=== PATIENT | male | born 1955 | race Caucasian/White ===

== ENCOUNTER 2016-09-11 07:15 | Observation (INO) | payer BC ==
[2016-09-11] VITALS (16 sets, daily range): BP systolic 110–149; BP diastolic 60–95; PULSE 66–81; TEMP 36.4–36.9; O2SAT 76–100; Ht 185.4 cm; Wt 99.9 kg
[~2016-09-11] VITALS: Ht 185.4 cm; Wt 99.9 kg
[~2016-09-11 07:15] MED LIST: ASPI81TA28 PO; CHOL1000 PO; COEN1CAP28 PO; FLUT27.53; LORA5TAB3 PO; PRT/20 PO; ROSU40TA PO
[2016-09-11] MEDS ORDERED: MIDAZOLAM HCL 1 MG/ML 2ML VIAL ONE (08:03)
[2016-09-11] MEDS ORDERED: NiCARDipine HCL INJ 2.5 MG/ML 10 ML AMP ONE (08:03)
[2016-09-11] MEDS: FENTANYL CITRATE INJ 50 MCG/1 ML 2 ML VIAL ONE (08:03)
[2016-09-11] MEDS ORDERED: HEPARIN SOD (PORCINE) 1000 UNIT/ML 10 ML VIAL ONE ×2 (08:03→09:25)
[2016-09-11] MEDS ORDERED: NITROGLYCERIN/D5W 100MCG/ML 20ML SYR ONE (08:04)
[2016-09-11] MEDS ORDERED: FENTANYL CITRATE INJ 50 MCG/1 ML 2 ML VIAL ONE (09:23)
[2016-09-11] MEDS: MIDAZOLAM HCL 1 MG/ML 2ML VIAL ONE (09:23)
--- NOTE | 2016-09-11 09:34 | Procedure Note ---
Pre-Mod Sedation Assessment General Date of Moderate Sedation: Sep 11, 2016. Vital Signs: Vital Signs Past 12 Hours Date Time Temp Pulse Resp B/P (MAP) Pulse Ox O2 Delivery O2 Flow Rate FiO2 09/11/16 07:27 36.5 75 16 147/61 98 Room Air Review Cardiovascular: regular rate, rhythm, no edema, no gallop Abdomen: normal bowel sounds, non tender, soft Lungs: chest non-tender, lungs clear Pre-Sedation Airway Assessment Oral Cavity: WNL Short Thick Neck: No Hx of Sleep Apnea: No Smoking Status: Never Smoker Mallampati Classification: Class III ASA Classification: Class III Procedure Planning Contraindications-for Mod Sed: None Yes Notes The planned sedation has been discussed with the patient and consent obtained. I have identified the patient, determined the appropriateness of sedation and have assessed the patient immediately prior to the procedure. All medicine(s) and interventions are by my order.
--- NOTE | 2016-09-11 09:35 | History & Physical Bridge Note ---
H&P Re-Evaluation Bridge Note: I have examined the patient, reviewed the History & Physical and in the interval since the performance of the History & Physical I have noted the following changes of clinical significance: No changes noted
--- NOTE | 2016-09-11 09:35 | Procedure Note ---
Post-Mod Sedation Assessment General Date of Moderate Sedation Sep 11, 2016. Vital Signs: Vital Signs Past 12 Hours Date Time Temp Pulse Resp B/P (MAP) Pulse Ox O2 Delivery O2 Flow Rate FiO2 09/11/16 07:27 36.5 75 16 147/61 98 Room Air Review - Discharge Criteria Vital Signs Stable: Yes Alert/Oriented/Conversant: Yes Returned to Baseline Mental St: Yes Nausea Absent/Minimal: Yes Pain/Discomfort/Absent/Minimal: Yes Normal/Baseline Respirations: Yes Active Bleeding?: No Pt Received D/C Instructions: N/A Prescriptions Given: None Specific Proced. D/C Criteria Distal Pulses Present (Cardiac: Yes Groin site assessed-Card Cath: N/A Voided Prior To Discharge: N/A Discharged Patients Adult Escort/Transportation: N/A
--- NOTE | 2016-09-11 10:00 | Cardiac Catheterization ---
Procedure Note Procedure Date Sep 11, 2016. Pre-Procedure Diagnosis Positive Stress Test, CAD AUC Score 8 Post-Procedure Diagnosis Severe CAD Procedure(s) Performed Coronary Angiography, Left Heart Cath [employer] Sergeant Dr. Pineda Rate Supervisor(s) Asa REPORTS DEVELOPER Estimated Blood Loss 5cc Medication(s) Fentanyl, Heparin, Nicardipine, Nitroglycerin, Versed, Lidocaine 1% Summary of Findings 95% mid LAD involving ostium of D2. 100% mid RCA, distal vessel and PDA fills via bridging collaterals and left to right collaterals. Hemodynamics Rest Ao: 128/79/101 Final Ao: 118/76/95 LV: 133/8/8 Recommendations PCI without planned CABG Specimens None Radiation Exposure (mGy) 1565 Contrast (mls) 90 Anesthesia Moderate sedation. Start 827. End 924. Sedation RN : Jamie Garcia Procedural Complication(s) None Disposition Patient remained in slab conditioner supervisor for PCI ACC Data Cardiac Status Clinical evaluation leading to the procedure CAD Presntation: Positive Stress Test Anginal Classification: CCS II Heart Failure: No Stress studies past 6 months: Yes Coronary Anatomy Dominant: Co-dominant Left Main (% Stenosis): Normal LAD (% Stenosis): Ostial (0%), Proximal (30% proximal followed by ectatic area) , Mid (95% involving ostium of D2), Distal (10%) D1 (% Stenosis): Ostial (70%), Proximal (20%), Mid (10%), Distal (10%) Circumflex (% Stenosis): Ostial (0%), Proximal (20%), Mid (10%), Distal (10%) OM1 (% Stenosis): Ostial (10%), Proximal (20%), Mid (20%), Distal (10%) L PL1 (% Stenosis): Ostial (mild luminal irregularities 10%) L PDA (% Stenosis): Ostial (Mild luminal irregularities 10%) RCA (% Stenosis): Ostial (0%), Proximal (20%), Mid (100% with KEVIN 1 flow. + bridging collaterals) R PDA (% Stenosis): Ostial (moderate caliber vessel with luminal irregularities (10%), limited visualization) Diagnostic Status: Elective Closure Device Percutaneous Entry Location: Radial Intraprocedure Events Significant Dissection: No Perforation: No
[2016-09-11] MEDS ORDERED: CLOPIDOGREL BISULFATE 300 MG TAB PO ONE (10:53)
[2016-09-11] MEDS ORDERED: ONDANSETRON INJ 2 MG/ML 2 ML VIAL IV PRN (11:00)
--- NOTE | 2016-09-11 11:09 | Procedure Note ---
Post-Mod Sedation Assessment General Date of Moderate Sedation Sep 11, 2016. Vital Signs: Vital Signs Past 12 Hours Date Time Temp Pulse Resp B/P (MAP) Pulse Ox O2 Delivery O2 Flow Rate FiO2 09/11/16 11:03 79 16 122/76 (91) 95 Room Air 09/11/16 10:55 77 16 117/76 (90) 95 Room Air 09/11/16 07:27 36.5 75 16 147/61 98 Room Air Review - Discharge Criteria Vital Signs Stable: Yes Alert/Oriented/Conversant: Yes Returned to Baseline Mental St: Yes Nausea Absent/Minimal: Yes Pain/Discomfort/Absent/Minimal: Yes Normal/Baseline Respirations: Yes Active Bleeding?: No Pt Received D/C Instructions: N/A Prescriptions Given: None Specific Proced. D/C Criteria Distal Pulses Present (Cardiac: Yes Groin site assessed-Card Cath: N/A Voided Prior To Discharge: N/A Discharged Patients Adult Escort/Transportation: N/A
--- NOTE | 2016-09-11 11:26 | Cardiac Catheterization ---
Procedure Note Procedure Date Sep 11, 2016. Pre-Procedure Diagnosis Positive Stress Test AUC Score 7 Post-Procedure Diagnosis Severe CAD, Successful PCI Procedure(s) Performed Drug Eluting Stent Primer Inserting Machine Operator Pato Furnace Combination Analyst(s) Asa Estimated Blood Loss 15 Medication(s) Fentanyl, Heparin, Nicardipine, Nitroglycerin, Versed Summary of Findings Indication: Positive Stress Access: 6Fr Slender Right Radial Artery Catheters: AR1, AL 1.0; ALR 1-2 Findings: For full details of patient's coronary angiography please see Cath Report dictated by Dr. Pineda. Briefly patient found to have 95% mid LAD stenosis involving bifurcation of large diagonal as well as subtotal chronic occlusion of early-mid RCA with left to right collaterals. -- PCI -- Antithrombotic therapy: Heparin, Clopidogrel Procedure: RCA eventually cannulated with ALR 1-2 guide after attempts with AR1/AL1 With the aid of 2.0 OTW balloon and guideliner whisper wire eventually passed across lesion into distal vessel Mid RCA lesion predilated with 2.0 and 2.5 compliant balloons Dilated lesion stented with 2.75 x 18 Resolute ANUJ Stent post-dilated with 3.0 noncompliant balloon IC vasodilators administered for spasm Moderate to severe residual stenosis remained distal to placed stent. 2nd ANUJ placed overlapping distal aspect of 1st stent - 2.75 x 12 Resolute ANUJ. Post dilated with stent balloon to high atmospheres Post procedure KEVIN 3 flow, stents well expanded with minimal residual stenosis and no apparent cardiac complications. Arterial Closure: TR Band Summary: 1. Severe 2 vessel coronary artery disease - 95% mid LAD at bifurcation with large diagonal - 99%/subtotal chronic occlusion early-mid RCA 2. Successful PCI of Mid RCA with 2 drug-eluting stents (2.75 x 18, 2.75 x 12 Resolute, post-dilated to 3.0) Recommendations: To PCU for continued monitoring Loaded with Clopidogrel 600 mg in construction or leak gang laborer Continue dual-antiplatelet therapy with ASA/Clopidogrel for 1 year Continue statin, ASCVD risk factor modification per Dr. Pineda Consult cardiac Rehab Tentatively plan for staged PCI of LAD on Wednesday 09/13. Hemodynamics Rest Ao: 118/79/97 Final Ao: 113/78/93 LV: -- Recommendations PCI without planned CABG Specimens None Radiation Exposure (mGy) 4202 Contrast (mls) 200 total Fluids (cc crystalloids) 280 Drains None Anesthesia Moderate Procedural Complication(s) None Disposition PCU ACC Data Cardiac Status Clinical evaluation leading to the procedure CAD Presntation: Positive Stress Test Diagnostic Physician's Name: Elmo Pineda DO Closure Device Percutaneous Entry Location: Radial Closure Device: Radial Band Recommendations: PCI without planned CABG PCI Indication: Unstable Angina, + Stress Test Lesion Segment Name: mid RCA Culprit Artery: No Stenosis Prior to Rx (%): 99 Chronic Total Occlusion: No IVUS: No FFR: No Pre-Procedure KEVIN Flow: 2 Previously Treated Lesion: No Lesion Complexity: High/C Lesion Length (mm): 20 Thrombus Present: No Bifurcation Lesion: No Guidewire Across Lesion: Yes Guidewire: Stenosis Post-Procedure (%): 0 Post-Procedure KEVIN Flow: 3 Device(s) Deployed: Yes Intraprocedure Events Significant Dissection: No Perforation: No
[2016-09-11] MEDS ORDERED: SODIUM CHLORIDE 0.9% 1000ML 1,000 ML IV SCH (12:15)
[2016-09-11] MEDS ORDERED: IV FLUIDS COMPLETED PRN (12:15)
--- NOTE | 2016-09-11 14:16 | History and Physical ---
History & Physical Date & Time of Service: Sep 11, 2016 at 14:01 Chief Complaint: CAD Primary Care Physician: Sherly Pineda D.O. History of Present Illness Source: patient 60M with hx of hyperlipidemia, bicuspid aortic valve is s/p elective cardiac cath for positive stress test. patient is s/p two stents to RCA and plan for staged stent to mid LAD stenosis on Friday. Patient says few weeks ago while hiking he was getting burning sensation in his chest which would subside after taking rest. But since last 3 weeks his symptoms subsided. He had a stress test for above symptoms and it was positive and subsequently patient was scheduled for cardiac cath today. Currently resting comfortably. denies any chest pain. no sob. no cough. Afebrile. No nausea or abdominal pain. Family History father had hyperlipidemia, enlarged prostate and valve surgery maternal grand father had prostrate cancer in his 90's. Social History Smoking Status: Never Smoker Alcohol Use: 1-2 drinks daily Drug Use: none Marital Status: Housing status: lives with family Occupational Status: employed Immunizations History of Influenza Vaccine: Unknown History of Tetanus Vaccine?: Unknown History of Pneumococcal: No Multi-Drug Resistant Organisms History of MDRO: No Allergies Coded Allergies: No Known Allergies (Unverified , 02/22/04) Home Medications Scheduled Aspirin (Aspirin Ec), 81 MG PO DAILY Cholecalciferol (Vitamin D3), 1 TAB PO DAILY Coenzyme Q10 (Ubidecarenone) (Co Q10), 100 MG PO DAILY Fluticasone Furoate (Flonase Sensimist), 1 SPRAY NA DAILY Loratadine & Pseudoephedrine (Claritin-D 12 Hour), 1 TAB PO BID Pantoprazole (Protonix), 20 MG PO DAILY Rosuvastatin Calcium (Crestor), 1 TAB PO DAILY Review of Systems Constitutional: No fever, No chills, No sweats Respiratory: No cough, No sputum, No shortness of breath, No dyspnea on exertion Cardiovascular: + chest pain (had chest pain on exertion few weeeks ago but none currently), No edema Abdomen: No pain, No nausea, No diarrhea Musculoskeletal: No swelling Genitourinary - Male: No dysuria Neurologic: No memory loss Integumentary: No rash Physical Exam Vital Signs Date Time Temp Pulse Resp B/P (MAP) Pulse Ox O2 Delivery O2 Flow Rate FiO2 09/11/16 13:57 36.6 81 15 110/74 (86) 98 Room Air 09/11/16 13:00 36.6 73 18 120/75 (90) 96 Room Air 09/11/16 12:15 36.6 77 18 145/60 (88) 96 Room Air 09/11/16 12:09 99 Room Air 09/11/16 11:58 36.6 76 18 143/88 (106) 76 Room Air 09/11/16 11:57 36.6 75 18 147/61 09/11/16 11:45 36.6 69 18 132/95 (107) 99 Room Air 09/11/16 11:30 36.6 71 18 119/74 (89) 99 Room Air 09/11/16 11:30 36.4 74 18 135/84 (101) 99 Room Air 09/11/16 11:30 99 Room Air 09/11/16 11:30 36.4 74 18 135/84 (101) 99 Room Air 09/11/16 11:03 79 16 122/76 (91) 95 Room Air 09/11/16 10:55 77 16 117/76 (90) 95 Room Air 09/11/16 07:27 36.5 75 16 147/61 98 Room Air General Appearance: WD/WN, no apparent distress Head: normocephalic, atraumatic Eyes: normal inspection, PERRL ENT: normal ENT inspection, hearing grossly normal, pharynx normal Neck: supple, no adenopathy, thyroid normal, no JVD Respiratory/Chest: chest non-tender, lungs clear, normal breath sounds, no respiratory distress, no accessory muscle use Cardiovascular: regular rate, rhythm, no edema, no gallop, no JVD, no murmur Abdomen/GI: normal bowel sounds, non tender, soft, no organomegaly, no pulsatile mass Extremities/Musculoskelatal: normal inspection, no pedal edema Neurologic/Psych: hairspring vibrator II-XII nml as tested, alert, normal mood/affect, oriented x 3 Skin: normal color, warm/dry, no rash Diagnostics Laboratory Results Results Past 24 Hours Test 09/11/16 09:31 09/11/16 09:52 09/11/16 10:15 09/11/16 10:45 Range/Units Kaolin Activated Coagulation Time 169 224 241 230 94-140 SECONDS Diagnostic Radiology s/p cardiac cath and two stents to RCA Impression Assessment and Plan 60m is s/p elective cardiac cath for positive stress test. CAD elective cardiac cath today showed two vessel disease 95% stenosis of mid LAD at bifurcation with large diagonal 99%/subtotal chronic occlusion early-mid RCA s/p two drug eluting stents to RCA plan for staged PCI of LAD on Wednesday 09/13. stated on aspirin and Plavix and rto continue home statin post cardiac cath management as per cardiology. Hyperlipidemia on statin will f/u lipid profile Dvt px scds. Disposition Monitor in tele to be determined We are consults. Cardiology is primary . Thank you for the consult Advanced Directives Existing Living Will: No Existing Power of Auto Clocks Repairer: No VTE Prophylaxis VTE Risk Assessment Done? Y/N: Yes Risk Level: Low Given or contraindicated: SCD's
[2016-09-11] MEDS: ROSUVASTATIN CALCIUM 20 MG TAB PO SCH (20:26)
[2016-09-11] MEDS ORDERED: LORATADINE PO SCH (21:00)
[2016-09-11] MEDS ORDERED: PSEUDOEPHEDRINE PO SCH (21:00)
[2016-09-12] VITALS (11 sets, daily range): BP systolic 126–151; BP diastolic 78–92; PULSE 64–82; TEMP 36.5–37; O2SAT 93–99
[2016-09-12 05:54] LABS: BASO % 0.1 %; BASO ABS # 0.01 K/uL (0-0.2); COMPLETE YES; EOS % 2.9 %; HEMATOCRIT 42.6 % (42-52); IG% 0.3 %; LYMPH % 20.8 %; LYMPH ABS # 1.43 K/uL (1.2-3.4); MEAN CELL VOLUME 90.6 fL (80-100); MEAN CORPUSCULAR HEMOGLOBIN 31.7 pg (25-34); MEAN PLATELET VOLUME 9.8 fL (7.4-10.4); MONO % 14.4 %; NEUT % 61.5 %; PLATELET COUNT 177 K/uL (130-400); WHITE BLOOD COUNT 6.89 K/uL (4.8-10.8)
[2016-09-12 06:33] LABS: BUN/CREATININE RATIO 14.5 (10-20); POTASSIUM 4.3 mmol/L (3.5-5.1)
[2016-09-12 06:36] LABS: CHOLESTEROL/HDL RATIO 4.4
[2016-09-12] MEDS: FLUTICASONE PROPIONATE NA SPR 16 GM BTL SCH (08:18)
[2016-09-12] MEDS: ASPIRIN 81 MG ECTAB PO SCH (08:18)
[2016-09-12] MEDS: CHOLECALCIFEROL 1000 INTER.UNIT TAB PO SCH (08:19)
[2016-09-12] MEDS: PANTOprazole SOD 40 MG TAB PO SCH (08:19)
[2016-09-12] MEDS: CLOPIDOGREL BISULFATE 75 MG TAB PO SCH (08:19)
[2016-09-12] MEDS ORDERED: NON-FORMULARY MEDICATION (Coenzyme Q10 (Ubidecarenone) (Co Q10) 100 MG) PO SCH (09:00)
--- NOTE | 2016-09-12 11:37 | Cardiology Follow-Up ---
Subjective General Date of Service: Sep 12, 2016. Pt evaluation today including: conversation w/ patient, physical exam, chart review, lab review, review of studies, conversation w/ retail client solutions consultant, review of inpatient medication list History of Present Illness The patient is a 60 year old male seen in follow-up. Feels well from a cardiovascular perspective. Mild wrist soreness. No hematoma. Denies chest discomfort or shortness of breath. Telemetry demonstrates sinus rhythm with a 13 beat de of atrial tachycardia at approximately 1 AM. Patient offers no complaints today. Allergies Coded Allergies: No Known Allergies (Unverified , 02/22/04) Social History Smoking Status: Never Smoker Hx Tobacco Use In Past Year?: No Hx Alcohol Use - Type And Amou: Yes (6 pack of beer a day) Hx Substance Use - Type And Am: No Review of Systems Respiratory: No cough, No sputum, No wheezing, No shortness of breath, No dyspnea on exertion, No dyspnea at rest, No hemoptysis Cardiac: No chest pain, No orthopnea, No PND, No edema, No claudication, No palpitations Physical Exam Vital Signs Last Vital Signs Documentation Date Time Temp Pulse Resp B/P (MAP) Pulse Ox O2 Delivery O2 Flow Rate FiO2 09/12/16 08:01 36.7 74 20 146/92 (110) 93 Room Air Physical Exam Constitutional: General Apperance: heathly-appearing, well-nourished, well-developed Level of Distress: NAD Head: normocephalic, atraumatic ENMT: normal ENT inspection, hearing grossly normal Neck: supple, trachea midline Lungs: Auscultation: breath sounds normal, no wheezing, no rales/crackles, no rhonchi Cardiovascular: Heart Auscultation: RRR, normal S1, normal S2, I/ JUAN Peripheral Pulses: Radial Pulse: normal on the left, normal on the right Femoral Pulse: normal on the left, normal on the right Abdomen: Bowel Sounds: normal Inspection & Palpation: soft, non-distended, no tenderness, guarding & rebound Musculoskeletal: normal, normal strength (5/5 throughout) Extremities: no cyanosis, no edema, no clubbing, no ulcers Neurologic: Gait & Station: pertinent finding (No focal deficit) Cranial Nerves: grossly intact Assessment and Plan Assessment and Plan Final impression: 1. 60-year-old male electively admitted for cardiac catheterization demonstrating severe two-vessel coronary disease with a 100% occlusion of his right coronary artery and a 95% mid LAD stenosis involving the ostium of a second diagonal branch vessel. Patient received 2 overlapping drug-eluting stents to the right coronary artery 09/11/16. Patient tolerated procedure well without complication. 2. Bicuspid aortic valve with mild aortic stenosis 3. Dyslipidemia 4. Elevated blood pressure Plan/recommendations: Patient will return to the catheterization lab tomorrow for percutaneous intervention of the left anterior descending artery. He will continue aspirin, Plavix, and high-dose statin. I'm adding Toprol-XL 25 mg daily today. He will receive his first dose this morning. Continue telemetry monitoring during hospitalizations. Nothing by mouth except medications after midnight. Plan for discharge on Friday post PCI. Laboratory Results Last 24 Hours Test 09/12/16 05:14 White Blood Count 6.89 K/uL Red Blood Count 4.70 M/uL Hemoglobin 14.9 g/dL Hematocrit 42.6 % Mean Corpuscular Volume 90.6 fL Mean Corpuscular Hemoglobin 31.7 pg Mean Corpuscular Hemoglobin Concent 35.0 g/dl Platelet Count 177 K/uL Mean Platelet Volume 9.8 fL Neutrophils (%) (Auto) 61.5 % Lymphocytes (%) (Auto) 20.8 % Monocytes (%) (Auto) 14.4 % Eosinophils (%) (Auto) 2.9 % Basophils (%) (Auto) 0.1 % Neutrophils # (Auto) 4.24 K/uL Lymphocytes # (Auto) 1.43 K/uL Monocytes # (Auto) 0.99 K/uL Eosinophils # (Auto) 0.20 K/uL Basophils # (Auto) 0.01 K/uL RDW Standard Deviation 42.2 fL RDW Coefficient of Variation 12.6 % Immature Granulocyte % (Auto) 0.3 % Immature Granulocyte # (Auto) 0.02 K/uL Sodium Level 140 mmol/L Potassium Level 4.3 mmol/L Chloride Level 107 mmol/L Carbon Dioxide Level 28 mmol/L Anion Gap 5.0 mmol/L Blood Urea Nitrogen 15 mg/dl Creatinine 1.00 mg/dl Est Creatinine Clear Calc Drug Dose 98.5 ml/min Estimated GFR () 94.4 Estimated GFR (Non- 81.4 BUN/Creatinine Ratio 14.5 Random Glucose 95 mg/dl Calcium Level 8.0 mg/dl Triglycerides Level 411 mg/dl Cholesterol Level 162 mg/dl HDL Cholesterol 37 mg/dl LDL Cholesterol, Calculated mg/dl VLDL Cholesterol, Calculated mg/dl Cholesterol/HDL Ratio 4.4
[2016-09-12] MEDS ORDERED: METOPROLOL SUCC 25MG EXT REL TAB PO ONE (12:45)
--- NOTE | 2016-09-12 12:53 | Progress Note ---
Medicine Progress Note Date & Time of Visit: Sep 12, 2016 at 12:35. Subjective Pt was seen and examined Lying in bed comfortable watching moving in his laptop Pt said that he feels fine he denies any chest pain, palpitation, dizziness and sob Objective Last 8 Hrs Date Time Temp Pulse Resp B/P (MAP) Pulse Ox O2 Delivery O2 Flow Rate FiO2 09/12/16 12:00 99 Room Air 09/12/16 08:01 36.7 74 20 146/92 (110) 93 Room Air 09/12/16 08:00 99 Room Air Physical Exam: General- No acute distress Head- atraumatic Eyes- PERRL, EOMI ENT- oropharynx clear Neck- supple, no JVD Lungs- clear to auscultation Heart- regular rhythm; no murmur Abdomen- normal bowel sounds, soft Extremities- no calf tenderness, No edema Neuro- alert, oriented x 3; PERRL, EOMI Skin- warm & dry Laboratory Results: Last 24 Hours Test 09/12/16 05:14 White Blood Count 6.89 K/uL Red Blood Count 4.70 M/uL Hemoglobin 14.9 g/dL Hematocrit 42.6 % Mean Corpuscular Volume 90.6 fL Mean Corpuscular Hemoglobin 31.7 pg Mean Corpuscular Hemoglobin Concent 35.0 g/dl Platelet Count 177 K/uL Mean Platelet Volume 9.8 fL Neutrophils (%) (Auto) 61.5 % Lymphocytes (%) (Auto) 20.8 % Monocytes (%) (Auto) 14.4 % Eosinophils (%) (Auto) 2.9 % Basophils (%) (Auto) 0.1 % Neutrophils # (Auto) 4.24 K/uL Lymphocytes # (Auto) 1.43 K/uL Monocytes # (Auto) 0.99 K/uL Eosinophils # (Auto) 0.20 K/uL Basophils # (Auto) 0.01 K/uL RDW Standard Deviation 42.2 fL RDW Coefficient of Variation 12.6 % Immature Granulocyte % (Auto) 0.3 % Immature Granulocyte # (Auto) 0.02 K/uL Sodium Level 140 mmol/L Potassium Level 4.3 mmol/L Chloride Level 107 mmol/L Carbon Dioxide Level 28 mmol/L Anion Gap 5.0 mmol/L Blood Urea Nitrogen 15 mg/dl Creatinine 1.00 mg/dl Est Creatinine Clear Calc Drug Dose 98.5 ml/min Estimated GFR () 94.4 Estimated GFR (Non- 81.4 BUN/Creatinine Ratio 14.5 Random Glucose 95 mg/dl Calcium Level 8.0 mg/dl Triglycerides Level 411 mg/dl Cholesterol Level 162 mg/dl HDL Cholesterol 37 mg/dl LDL Cholesterol, Calculated mg/dl VLDL Cholesterol, Calculated mg/dl Cholesterol/HDL Ratio 4.4 Assessment & Plan CAD S/p elective cardiac cath yesterday 95% stenosis of mid LAD at bifurcation with large diagonal 100% subtotal chronic occlusion early-mid RCA s/p two drug eluting stents to RCA Planning to go to cardiac cath tomorrow for percutaneous intervention of the left anterior descending artery Continue plavix/aspirin/ statin and metoprolol adding Asymptomatic Hyperlipidemia Continue statin DVT px scds. Current Inpatient Medications: Current Inpatient Medications Medications (Trade) Dose Ordered Sig/Leonel Route Start Time Stop Time Status Last Admin Dose Admin Ondansetron HCl (Zofran Inj) 4 mg Q6H PRN IV 09/11/16 11:00 10/11/16 10:59 Aspirin (Ecotrin Tab) 81 mg QAM PO 09/12/16 09:00 10/12/16 08:59 09/12/16 08:18 81 MG Clopidogrel Bisulfate (plAVix TAB) 75 mg QAM PO 09/12/16 09:00 10/12/16 08:59 09/12/16 08:19 75 MG Cholecalciferol (Vitamin D Tab) 1 inter.unit DAILY PO 09/12/16 09:00 10/12/16 08:59 09/12/16 08:19 1 INTER.UNIT Rosuvastatin Calcium (Crestor Tab) 40 mg DAILY PO 09/12/16 09:00 10/12/16 08:59 09/11/16 20:26 40 MG Fluticasone Propionate (Flonase Nasal [place]) 1 sprays DAILY NA 09/12/16 09:00 10/12/16 08:59 09/12/16 08:18 1 SPRAYS Pantoprazole Sodium (Protonix Tab) 40 mg QAM PO 09/12/16 09:00 10/12/16 08:59 Miscellaneous (Iv Fluids Completed) 1 ea PRN PRN N/A 09/11/16 12:15 09/11/17 12:14 Miscellaneous Information (Order Awaiting Action) 1 ea QS N/A 09/11/16 16:00 10/11/16 15:59 Metoprolol Succinate (Toprol Xl Tab) 25 mg QAM PO 09/13/16 09:00 10/13/16 08:59 Metoprolol Succinate (Toprol Xl Tab) 25 mg TODAY@1245 ONCE PO 09/12/16 12:45 09/12/16 12:46 09/12/16 12:26 25 MG
[2016-09-13] VITALS (20 sets, daily range): BP systolic 99–154; BP diastolic 56–92; PULSE 64–74; TEMP 36.5–37; O2SAT 95–99
[2016-09-13 06:29] LABS: BASO % 0.2 %; BASO ABS # 0.01 K/uL (0-0.2); COMPLETE YES; EOS % 2.6 %; HEMATOCRIT 45.2 % (42-52); IG% 0.3 %; LYMPH ABS # 1.32 K/uL (1.2-3.4); MEAN CELL VOLUME 89.5 fL (80-100); MEAN CORPUSCULAR HEMOGLOBIN 29.9 pg (25-34); MEAN CORPUSCULAR HGB CONC 33.4 g/dl (32-36); MEAN PLATELET VOLUME 9.4 fL (7.4-10.4); MONO % 14.1 %; NEUT % 59.8 %; PLATELET COUNT 198 K/uL (130-400); RED BLOOD COUNT 5.05 M/uL (4.7-6.1); WHITE BLOOD COUNT 5.74 K/uL (4.8-10.8)
[2016-09-13 06:56] LABS: BLOOD UREA NITROGEN 14 mg/dl (7-18); CALCIUM 8.4 mg/dl (8.5-10.1); CARBON DIOXIDE 29 mmol/L (21-32); CHLORIDE 108 mmol/L (98-107); GLUCOSE 95 mg/dl (70-99); SODIUM 140 mmol/L (136-145)
[2016-09-13] MEDS: FLUTICASONE PROPIONATE NA SPR 16 GM BTL SCH (07:55)
[2016-09-13] MEDS: ASPIRIN 81 MG ECTAB PO SCH (07:55)
[2016-09-13] MEDS: CHOLECALCIFEROL 1000 INTER.UNIT TAB PO SCH (07:56)
[2016-09-13] MEDS: METOPROLOL SUCC 25MG EXT REL TAB PO SCH (07:56)
[2016-09-13] MEDS: PANTOprazole SOD 40 MG TAB PO SCH (07:56)
[2016-09-13] MEDS: CLOPIDOGREL BISULFATE 75 MG TAB PO SCH (07:56)
[2016-09-13] MEDS: ROSUVASTATIN CALCIUM 20 MG TAB PO SCH (07:57)
[2016-09-13] MEDS ORDERED: NiCARDipine HCL INJ 2.5 MG/ML 10 ML AMP ONE (09:40)
[2016-09-13] MEDS ORDERED: HEPARIN SOD (PORCINE) 1000 UNIT/ML 10 ML VIAL ONE (09:40)
[2016-09-13] MEDS ORDERED: MIDAZOLAM HCL 1 MG/ML 2ML VIAL ONE ×2 (09:41→14:13)
[2016-09-13] MEDS ORDERED: FENTANYL CITRATE INJ 50 MCG/1 ML 2 ML VIAL ONE ×2 (09:41→14:13)
[2016-09-13] MEDS ORDERED: NITROGLYCERIN/D5W 100MCG/ML 20ML SYR ONE (09:42)
[2016-09-13] MEDS ORDERED: LISINOPRIL 10 MG TAB PO SCH (09:45)
--- NOTE | 2016-09-13 09:51 | Cardiology Follow-Up ---
Subjective General Date of Service: Sep 13, 2016. Pt evaluation today including: conversation w/ patient, physical exam, chart review, lab review, review of studies, review of inpatient medication list History of Present Illness The patient is a 60 year old male seen in follow-up. Feeling well from a cardiovascular standpoint. Offers no complaints. Blood pressure remains mildly elevated. Short de of asymptomatic paroxysmal atrial tachycardia recorded on telemetry. Allergies Coded Allergies: No Known Allergies (Unverified , 02/22/04) Social History Smoking Status: Never Smoker Hx Tobacco Use In Past Year?: No Hx Alcohol Use - Type And Amou: Yes (6 pack of beer a day) Hx Substance Use - Type And Am: No Review of Systems Respiratory: No cough, No sputum, No wheezing, No shortness of breath, No dyspnea on exertion, No dyspnea at rest, No hemoptysis Cardiac: No chest pain, No orthopnea, No PND, No edema, No claudication Physical Exam Vital Signs Last Vital Signs Documentation Date Time Temp Pulse Resp B/P (MAP) Pulse Ox O2 Delivery O2 Flow Rate FiO2 09/13/16 08:00 99 Room Air 09/13/16 07:23 36.9 71 19 152/92 (112) Physical Exam Constitutional: General Apperance: heathly-appearing, well-nourished, well-developed Level of Distress: NAD Head: normocephalic, atraumatic ENMT: normal ENT inspection, hearing grossly normal Neck: supple, trachea midline Lungs: Auscultation: breath sounds normal, no wheezing, no rales/crackles, no rhonchi Cardiovascular: Heart Auscultation: RRR, normal S1, normal S2, I/ JUAN Peripheral Pulses: Radial Pulse: normal on the left, normal on the right Femoral Pulse: normal on the left, normal on the right Abdomen: Bowel Sounds: normal Inspection & Palpation: soft, non-distended, no tenderness, guarding & rebound Musculoskeletal: normal, normal strength (5/5 throughout) Extremities: no cyanosis, no edema, no clubbing, no ulcers Neurologic: Gait & Station: pertinent finding (No focal deficit) Cranial Nerves: grossly intact Assessment and Plan Assessment and Plan Final impression: 1. 60-year-old male electively admitted for cardiac catheterization demonstrating severe two-vessel coronary disease with a 100% occlusion of his right coronary artery and a 95% mid LAD stenosis involving the ostium of a second diagonal branch vessel. Residual 70% ostial D1. Patient received 2 overlapping drug-eluting stents to the right coronary artery 09/11/16. Patient tolerated procedure well without complication. 2. Bicuspid aortic valve with mild aortic stenosis 3. Echocardiographic evidence of prior myocardial infarction with preserved LV systolic function 4. Dyslipidemia 5. Elevated blood pressure 6. Asymptomatic PAT on telemetry Plan/recommendations: Patient will have PCI of the mid LAD today. Add lisinopril 5 mg daily to improve blood pressure control. Continue aspirin, Plavix, Toprol-XL, and high- dose statin. Continue telemetry monitoring during hospitalization. Possible discharge in a.m. Laboratory Results Last 24 Hours Test 09/13/16 06:05 09/13/16 06:58 White Blood Count 5.74 K/uL Red Blood Count 5.05 M/uL Hemoglobin 15.1 g/dL Hematocrit 45.2 % Mean Corpuscular Volume 89.5 fL Mean Corpuscular Hemoglobin 29.9 pg Mean Corpuscular Hemoglobin Concent 33.4 g/dl Platelet Count 198 K/uL Mean Platelet Volume 9.4 fL Neutrophils (%) (Auto) 59.8 % Lymphocytes (%) (Auto) 23.0 % Monocytes (%) (Auto) 14.1 % Eosinophils (%) (Auto) 2.6 % Basophils (%) (Auto) 0.2 % Neutrophils # (Auto) 3.43 K/uL Lymphocytes # (Auto) 1.32 K/uL Monocytes # (Auto) 0.81 K/uL Eosinophils # (Auto) 0.15 K/uL Basophils # (Auto) 0.01 K/uL RDW Standard Deviation 40.4 fL RDW Coefficient of Variation 12.6 % Immature Granulocyte % (Auto) 0.3 % Immature Granulocyte # (Auto) 0.02 K/uL Sodium Level 140 mmol/L Potassium Level mmol/L 4.1 mmol/L Chloride Level 108 mmol/L Carbon Dioxide Level 29 mmol/L Anion Gap 3.0 mmol/L Blood Urea Nitrogen 14 mg/dl Creatinine 1.00 mg/dl Est Creatinine Clear Calc Drug Dose 98.3 ml/min Estimated GFR () 94.4 Estimated GFR (Non- 81.4 BUN/Creatinine Ratio 14.0 Random Glucose 95 mg/dl Calcium Level 8.4 mg/dl
[2016-09-13] MEDS ORDERED: LISINOPRIL 5 MG TAB PO ONE (11:12)
[2016-09-13] MEDS ORDERED: CLOPIDOGREL BISULFATE 300 MG TAB PO ONE (14:46)
[2016-09-13] MEDS ORDERED: ONDANSETRON INJ 2 MG/ML 2 ML VIAL IV PRN (15:45)
[2016-09-13] MEDS ORDERED: SODIUM CHLORIDE 0.9% 1000ML 1,000 ML IV SCH (15:45)
--- NOTE | 2016-09-13 15:58 | Progress Note ---
Medicine Progress Note Date & Time of Visit: Sep 13, 2016 at 15:56. Subjective Pt was seen and examined Lying in bed with no distress Denies any chest pain, palpitation, dizziness and SOB Objective Last 8 Hrs Date Time Temp Pulse Resp B/P (MAP) Pulse Ox O2 Delivery O2 Flow Rate FiO2 09/13/16 15:52 73 20 143/71 (95) 98 Room Air 09/13/16 15:37 71 20 141/74 (96) 97 Room Air 09/13/16 15:30 71 20 141/74 (96) 97 Room Air 09/13/16 15:15 36.5 71 18 151/78 (102) 97 Room Air 09/13/16 15:00 74 20 148/73 (98) 96 Room Air 09/13/16 14:45 64 18 154/92 (112) 95 Room Air 09/13/16 14:35 64 18 145/89 (107) 95 Room Air 09/13/16 11:15 65 16 119/84 (96) 97 Room Air 09/13/16 11:00 61 16 130/75 (93) 95 Room Air 09/13/16 10:45 63 16 120/73 (89) 95 Room Air 09/13/16 10:30 62 16 123/81 (95) 94 Room Air 09/13/16 10:15 64 16 128/80 (96) 94 Room Air 09/13/16 10:05 64 16 126/69 (88) 95 Room Air 09/13/16 08:00 99 Room Air Physical Exam: General- No acute distress Head- atraumatic Eyes- PERRL, EOMI ENT- oropharynx clear Neck- supple, no JVD Lungs- clear to auscultation Heart- regular rhythm; no murmur Abdomen- normal bowel sounds, soft Extremities- no calf tenderness, No edema Neuro- alert, oriented x 3; PERRL, EOMI Skin- warm & dry Laboratory Results: Last 24 Hours Test 09/13/16 06:05 09/13/16 06:58 White Blood Count 5.74 K/uL Red Blood Count 5.05 M/uL Hemoglobin 15.1 g/dL Hematocrit 45.2 % Mean Corpuscular Volume 89.5 fL Mean Corpuscular Hemoglobin 29.9 pg Mean Corpuscular Hemoglobin Concent 33.4 g/dl Platelet Count 198 K/uL Mean Platelet Volume 9.4 fL Neutrophils (%) (Auto) 59.8 % Lymphocytes (%) (Auto) 23.0 % Monocytes (%) (Auto) 14.1 % Eosinophils (%) (Auto) 2.6 % Basophils (%) (Auto) 0.2 % Neutrophils # (Auto) 3.43 K/uL Lymphocytes # (Auto) 1.32 K/uL Monocytes # (Auto) 0.81 K/uL Eosinophils # (Auto) 0.15 K/uL Basophils # (Auto) 0.01 K/uL RDW Standard Deviation 40.4 fL RDW Coefficient of Variation 12.6 % Immature Granulocyte % (Auto) 0.3 % Immature Granulocyte # (Auto) 0.02 K/uL Sodium Level 140 mmol/L Potassium Level mmol/L 4.1 mmol/L Chloride Level 108 mmol/L Carbon Dioxide Level 29 mmol/L Anion Gap 3.0 mmol/L Blood Urea Nitrogen 14 mg/dl Creatinine 1.00 mg/dl Est Creatinine Clear Calc Drug Dose 98.3 ml/min Estimated GFR () 94.4 Estimated GFR (Non- 81.4 BUN/Creatinine Ratio 14.0 Random Glucose 95 mg/dl Calcium Level 8.4 mg/dl Assessment & Plan CAD S/p elective cardiac cath yesterday 95% stenosis of mid LAD at bifurcation with large diagonal 100% subtotal chronic occlusion early-mid RCA s/p two drug eluting stents to RCA Will go to cardiac cath today for percutaneous intervention of the left anterior descending artery staging Continue plavix/aspirin/ statin and metoprolol adding Continue monitor in tele Asymptomatic Hyperlipidemia Continue statin DVT px scds. Current Inpatient Medications: Current Inpatient Medications Medications (Trade) Dose Ordered Sig/Leonel Route Start Time Stop Time Status Last Admin Dose Admin Ondansetron HCl (Zofran Inj) 4 mg Q6H PRN IV 09/11/16 11:00 10/11/16 10:59 Aspirin (Ecotrin Tab) 81 mg QAM PO 09/12/16 09:00 10/12/16 08:59 09/13/16 07:55 81 MG Clopidogrel Bisulfate (plAVix TAB) 75 mg QAM PO 09/12/16 09:00 10/12/16 08:59 09/13/16 07:56 75 MG Cholecalciferol (Vitamin D Tab) 1 inter.unit DAILY PO 09/12/16 09:00 10/12/16 08:59 09/13/16 07:56 1 INTER.UNIT Rosuvastatin Calcium (Crestor Tab) 40 mg DAILY PO 09/12/16 09:00 10/12/16 08:59 09/13/16 07:57 40 MG Fluticasone Propionate (Flonase Nasal [place]) 1 sprays DAILY NA 09/12/16 09:00 10/12/16 08:59 09/12/16 08:18 1 SPRAYS Pantoprazole Sodium (Protonix Tab) 40 mg QAM PO 09/12/16 09:00 10/12/16 08:59 Miscellaneous (Iv Fluids Completed) 1 ea PRN PRN N/A 09/11/16 12:15 09/11/17 12:14 Miscellaneous Information (Order Awaiting Action) 1 ea QS N/A 09/11/16 16:00 10/11/16 15:59 Metoprolol Succinate (Toprol Xl Tab) 25 mg QAM PO 09/13/16 09:00 10/13/16 08:59 09/13/16 07:56 25 MG Lisinopril (Zestril Tab) 5 mg QAM PO 09/14/16 09:00 10/14/16 08:59 Sodium Chloride 1,000 ml @ 125 mls/hr Q8H IV 09/13/16 15:45 09/13/16 21:44 09/13/16 15:52 125 MLS/HR
--- NOTE | 2016-09-13 17:54 | Cardiac Catheterization ---
Procedure Note Procedure Date Sep 13, 2016. Pre-Procedure Diagnosis Positive Stress Test AUC Score 7 Post-Procedure Diagnosis Severe CAD, Successful PCI Procedure(s) Performed Coronary Angiography, Drug Eluting Stent, IVUS, Femoral Artery Angiography Filament Maker Pato Arc Welder Apprentice(s) Margarita Estimated Blood Loss 10 Medication(s) Clopidogrel, Fentanyl, Heparin, Nitroglycerin, Versed, Lidocaine 1% Summary of Findings Indication: Positive Stress Access: 6Fr Right Femoral Artery Catheters: EBU 4 Findings: For full details of patient's coronary angiography please see Cath Report dictated by Dr. Pineda. Briefly patient found to have 95% mid LAD stenosis involving bifurcation of large diagonal as well as subtotal chronic occlusion of early-mid RCA with left to right collaterals. PCI with 2 ANUJ to mid RCA 2 days ago. Returns today for staged PCI of LAD/2nd diagonal -- PCI -- Antithrombotic therapy: Heparin, Clopidogrel Procedure: LM cannulated with EBU 4 Sterile Supervisor 50 wire navigated into 2nd diagonal Prowater placed across lesion into distal LAD LAD lesion predilated with 2.5 compliant balloon Diagonal predilated with 2.5 compliant balloon. Mid LAD lesion stent with 3.0 x 15 Xience ANUJ Diagonal rewired with Sterile Supervisor 50 LAD stent post-dilated with 3.5 NC balloon. Diagonal ostium/stent struts dilated with 2.0 and 2.5 compliant balloons. IVUS confirmed residual stenosis in the mid portion of stent and at ostium of diagonal Stent again post dilated with 3.5 NC balloon to high atmospheres Kissing balloon inflation with 3.5 NC in LAD and 2.5 compliant in diagonal IC vasodilators administered for spasm IVUS confirmed well expanded mid LAD stent with minimal residual stenosis; residual ostial diagonal stenosis by IVUS <40%. Post procedure angiography showed KEVIN 3 flow, stents well expanded with minimal residual stenosis and no apparent cardiac complications. FACILITY ADMINISTRATOR appropriate for closure Arterial Closure: AngioSeal Summary: 1. Successful PCI of mid LAD/2nd diagonal bifurcation with 1 ANUJ (3.0 x 15 Xience ANUJ, post-dilated to 3.5 with kissing balloon inflation to 2nd diagonal bifurcation) 2. Moderate proximal LAD 50-60% stenosis by IVUS 3. Small 1st diagonal with 80% ostial stenosis Recommendations: To PCU for continued monitoring Continue dual-antiplatelet therapy with ASA/Clopidogrel for 1 year Continue statin, ASCVD risk factor modification per Dr. Kopinski Consult cardiac Rehab If were to have recurrent symptoms in the future could consider POBA of small 1st diagonal. Hemodynamics Rest Ao: 143/76/104 Final Ao: 118/74/92 LV: -- Recommendations PCI without planned CABG Specimens None Radiation Exposure (mGy) 3647 Contrast (mls) 140 Visi Fluids (cc crystalloids) 165 Drains None Anesthesia Moderat (13:19 - 14:35) Procedural Complication(s) None Disposition PCU ACC Data Cardiac Status Clinical evaluation leading to the procedure CAD Presntation: Positive Stress Test Anginal Classification: CCS III Heart Failure: No, NYHA Class: CCS I Cardiogenic Shock w/in 24Hrs: No Cardiac Arrest w/in 24Hrs: No Imaging studies past 6 months: Yes Stress studies past 6 months: Yes Stress Echocardiogram: Yes - Positive, Risk/Extent of Ischemia (High) Closure Device Percutaneous Entry Location: Femoral Closure Device: Angio-Seal Recommendations: PCI without planned CABG PCI Indication: Staged PCI Lesion Segment Name: Mid LAD Culprit Artery: Yes Stenosis Prior to Rx (%): 95 Chronic Total Occlusion: No IVUS: Yes FFR: No Pre-Procedure KEVIN Flow: 3 Previously Treated Lesion: No Lesion Complexity: High/C Lesion Length (mm): 15 Thrombus Present: No Bifurcation Lesion: Yes Guidewire Across Lesion: Yes Guidewire: Stenosis Post-Procedure (%): 0 Post-Procedure KEVIN Flow: 3 Device(s) Deployed: Yes Intraprocedure Events Significant Dissection: No Perforation: No
[2016-09-14] VITALS: O2SAT 96
[2016-09-14 04:10] VITALS: BP 164/78; PULSE 70; TEMP 37; O2SAT 98
[2016-09-14 07:03] LABS: BASO % 0.1 %; BASO ABS # 0.01 K/uL (0-0.2); COMPLETE YES; EOS % 1.3 %; IG% 0.2 %; LYMPH % 13.6 %; LYMPH ABS # 1.11 K/uL (1.2-3.4); MEAN CELL VOLUME 89.1 fL (80-100); MEAN CORPUSCULAR HEMOGLOBIN 29.5 pg (25-34); MEAN CORPUSCULAR HGB CONC 33.1 g/dl (32-36); MEAN PLATELET VOLUME 9.4 fL (7.4-10.4); MONO % 10.7 %; NEUT % 74.1 %; PLATELET COUNT 205 K/uL (130-400); RED BLOOD COUNT 5.05 M/uL (4.7-6.1); WHITE BLOOD COUNT 8.15 K/uL (4.8-10.8)
[2016-09-14 07:20] VITALS: BP 143/82; PULSE 74; TEMP 36.4; O2SAT 97
[2016-09-14 07:45] LABS: BUN/CREATININE RATIO 13.7 (10-20); CALCIUM 8.2 mg/dl (8.5-10.1); POTASSIUM 4.1 mmol/L (3.5-5.1)
[2016-09-14 08:00] VITALS: O2SAT 99
[2016-09-14] MEDS: ROSUVASTATIN CALCIUM 20 MG TAB PO SCH (08:11)
[2016-09-14] MEDS: FLUTICASONE PROPIONATE NA SPR 16 GM BTL SCH (08:11)
[2016-09-14] MEDS: METOPROLOL SUCC 25MG EXT REL TAB PO SCH (08:12)
[2016-09-14] MEDS: CHOLECALCIFEROL 1000 INTER.UNIT TAB PO SCH (08:12)
[2016-09-14] MEDS: CLOPIDOGREL BISULFATE 75 MG TAB PO SCH (08:12)
[2016-09-14] MEDS: PANTOprazole SOD 40 MG TAB PO SCH (08:12)
[2016-09-14] MEDS: ASPIRIN 81 MG ECTAB PO SCH (08:12)
[2016-09-14] MEDS ORDERED: LISINOPRIL 5 MG TAB PO SCH (09:00)
[2016-09-14] MEDS ORDERED: LISINOPRIL 10 MG TAB PO SCH (09:00)
[2016-09-14] MEDS ORDERED: TPRSR25 PO (10:18)
[2016-09-14] MEDS ORDERED: LSN5 PO (10:18)
[2016-09-14] MEDS ORDERED: PLV75 PO (10:18)
--- NOTE | 2016-09-14 10:21 | Discharge Instructions ---
Discharge Instructions Procedure Procedure Date: Sep 14, 2016. Reason for Visit: CAD. Discharge Discharge Date: Sep 14, 2016. Discharge Diagnosis: Coronary artery disease s/p 2 vessel PCI Last Recorded Wt (Kilograms): 99.900 Anesthesia Post Anesthesia Instructions: If you have had General Anesthesia or IV Sedation: * Do not drive today. * Resume driving when Friday . * Call surgeon for: 1. Temperature elevations greater than 101 degrees F. 2. Uncontrollable pain. 3. Excessive bleeding. 4. Persistent nausea and vomiting. 5. Medication intolerance (nausea, vomiting or rash). * For nausea and vomiting use only clear liquids such as: tea, soda, bouillon until nausea subsides, then gradually increase diet as tolerated. * If you have any concerns or questions, call your surgeon's office. If physician is unavailable and it is an emergency, call 911 or go to the nearest emergency room. Instructions Activity Recommendations: limitations as noted below Recommended Home Diet: resume previous diet, low cholesterol Allergies: Coded Allergies: No Known Allergies (Unverified , 02/22/04) Provider Instructions ACTIVITY RECOMMENDATIONS: It is common to feel weak and fatigue for a few days. * Do not drive or operate any motorized equipment for the next three days. * Limit stair usage (2 or 3 trips a day only) for the next three days. * Do not lift anything heavier than 10 pounds for the next three days. * Do not engage in vigorous exercise or any sports for the next five days. * You may shower the day after your procedure, but do not immerse the area for three days. Cleanse the site gently with soap and water. SPECIAL CARE INSTRUCTIONS: * You may replace the pressure dressing or band-aid the morning after the procedure. * After your procedure, it is normal to have a small bruise or small lump at the site. Examine your site daily for any change in the bruise or lump, redness, swelling, drainage or numbness. Notify your doctor if any change. BLEEDING: * If there is a small amount of bleeding at the site, lie down and apply firm pressure with a clean cloth for ten minutes. When the bleeding stops, lie quietly keeping the procedure limb straight for six hours. Notify your doctor as soon as possible. * If the bleeding does not stop after ten minutes or if there is a large amount of bleeding or spurting, call 911 immediately. Continue to lie down and hold firm pressure until help arrives. SKIN IRRITATION: * You may experience some redness and/or swelling in the area where radiation was administered. If any skin irritation occurs, please contact your family physician. FOLLOW UP VISIT: Keep any scheduled doctor appointments. Follow Up Follow-up with: Dr Julien or Edwin in the next two weeks Yady Alcantara Recommendations: Call your doctor if: * Temperature above 101 degrees * Pain not relieved by pain medicine ordered * There is increased drainage or redness from any incision * You have any unanswered questions or concerns. Your Doctors Instructions noted above were prepared by provider Calderon Beltrán. Patient Signature Section: Patient Instructions Signature Page Umair Stratton Patient (or Guardian) Signature/Date: I have read and understand the instructions given to me by my caregivers. Caregiver/RN/Doctor Signature/Date: The above-named patient and/or guardian has received patient instructions on this date. + Original Patient Signature Page (only) stays with chart. Please make copy for patient.
[2016-09-14 10:24] VITALS: BP 143/82; PULSE 74; TEMP 36.4; O2SAT 99
--- NOTE | 2016-09-14 11:40 | DISCHARGE SUMMARY ---
DISCHARGE DIAGNOSES: 1. Coronary artery disease status post 2-vessel percutaneous coronary intervention, receiving drug-eluting stents to the right coronary artery and left anterior descending. 2. Class 3 angina pectoris with positive stress testing. 3. Bicuspid aortic valve disease. 4. Hyperlipidemia. OPERATIONS AND PROCEDURES: The patient underwent diagnostic cardiac catheterization by Dr. Pineda on 09/11/2016, coronary intervention of the right coronary artery by Dr. Victor M Whyte on 09/11/2016 and staged second procedure with coronary interventions of the left anterior descending with IVUS on 09/13/2016. COMPLICATIONS: None. ALLERGIES: None. Discharge to home. CONDITION: Stable. NEW MEDICATIONS ON DISCHARGE: Clopidogrel 75 mg per day, lisinopril 5 mg p.o. q. day, metoprolol succinate 25 mg p.o. q. day. CONTINUED MEDICATIONS: Aspirin 81 mg per day, vitamin D3 1000 units q. day, coenzyme Q10 100 mg p.o. q. day, Flonase p.r.n., loratadine p.r.n., Protonix 20 mg p.o. q. day, rosuvastatin 40 mg p.o. q. day. SPECIAL INSTRUCTIONS: Follow up with Dr. Julien or Dr. Pineda in the next 2 weeks' time. Cardiac rehab consultation placed. Specific patient instructions, no driving, lifting or strenuous activity x3 days. Call or go to the ER if sudden pain, swelling and bleeding in the groin develop. May return to work in 1 week's time. Gradually reinstitute physical activities. BRIEF HISTORY: The patient is a 60-year-old male who recently was referred for stress testing after presenting with exertional symptoms of heartburn, indigestion-type chest pressure. Symptoms were specifically relieved by rest. He underwent stress echocardiography which was suggestive of stress induced anteroseptal inferior ischemia with newly noted bicuspid aortic valve. He was referred for diagnostic cardiac catheterization and presented for initially same-day procedure on 09/11/2016. HOSPITAL COURSE: The patient initially underwent diagnostic cardiac catheterization by Dr. Elmo Pineda on 09/11/2016 with study demonstrating 2-vessel significant coronary disease with mid 95% narrowing of the left anterior descending and involving the origin of the diagonal. Additional diagonal branch D1 also has a 70% narrowing at its origin. The right coronary artery was 100% mid vessel occlusion with bridging collaterals with moderate diffuse coronary atherosclerosis. The patient was subsequently referred for staged coronary intervention, initially undergoing recannulation of the right coronary occlusion, receiving 2 Resolute drug-eluting stents with post-procedure KEVIN 3 flow. He later returned for staged procedure on 09/13/2016 and received drug-eluting stents to the mid left anterior descending as well as balloon angioplasty to the origin of the second diagonal. The patient was noted to have residual 50%-60% narrowing of the proximal LAD and as noted previously, small first diagonal 80% ostial stenosis. Ultimate plan is for continued medical therapy arranged. The patient was ambulatory in the hospital on the day of discharge. No complaints, actually "felt better" than he has had in some time. Medications were adjusted to appropriate therapies including dual antiplatelet therapy, beta griffin, APRIL inhibitor, and high dose statin. Arrangements were made for cardiac rehab, which patient will consider and a close clinical followup as an outpatient.
== END 2016-09-14 11:50 | disposition home or self-care (01) ==
LOC: C.CATH 07:15 → ENRESERV 10:02 → C.2T 11:08
PROVIDERS: ADMIT Internal Medicine; ATTEND Internal Medicine
DX: I25.10 Atherosclerotic heart disease of native coronary artery without angina pectoris (principal); E78.5 Hyperlipidemia, unspecified; K21.9 Gastro-esophageal reflux disease without esophagitis; I35.0 Nonrheumatic aortic (valve) stenosis; Z79.82 Long term (current) use of aspirin; Z87.891 Personal history of nicotine dependence; Z80.42 Family history of malignant neoplasm of prostate